=== PATIENT | male | born 2000 | race Caucasian/White ===

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

== ENCOUNTER 2019-05-31 17:58 | Emergency (ER) | payer OTHER ==
[~2019-05-31] VITALS: Ht 177.8 cm; Wt 81.8 kg
[~2019-05-31 17:58] MED LIST changes: +COLACE 100100 MG/CAP PO; +IBU600 MG PO; +NORCO 325 MG-51 TAB PO; +TYLENOL 325MG325 MG PO
[2019-05-31 18:03] VITALS: BP 134/61
[2019-05-31 20:39] VITALS: PULSE 108; TEMP 102.5
[2019-06-01 02:21] LABS: ALBUMIN 4.5 gm/dL (3.5-5.0); BASO % 0.1 % (0.0-2.0); BILIRUBIN,TOTAL 0.5 mg/dL (0.0-1.0); CALCIUM 9.1 mg/dL (8.4-10.2); CREATININE, serum 0.88 (0.66-1.25); GRAN # 5.8 (1.4-6.5); GRAN % 87.4 % (42.2-75.2); HEMATOCRIT 38.1 % (36.0-47.0); HEMOGLOBIN 13.2 g/dl (12.5-16.1); LYMPH # 0.4 (1.2-3.4); LYMPH % 5.2 % (20.0-51.0); MEAN CELL VOLUME 87 fl (80.0-95.0); MEAN CORPUSCULAR HEMOGLOBIN 30 pg (26.0-32.0); MEAN CORPUSCULAR HGB CONC 35 g/dl (33.0-37.0); MEAN PLATELET VOLUME 8.3 fl (7.4-10.4); MONO # 0.5 (0.1-0.6); MONO % 6.9 % (1.7-9.3); PLATELET COUNT 202 K/mm3 (130-400); POTASSIUM 3.9 mmol/L (3.4-5.0); RED BLOOD COUNT 4.36 M/mm3 (4.20-5.60); REDCELL DISTRIBUTION WIDTH-CV 12.4 % (11.5-14.5); TOTAL PROTEIN 7.7 gm/dL (6.4-8.2)
[2019-06-01 02:21] LABS: COLLECTION METHOD CLEAN CATCH
[2019-06-01 02:23] LABS: MUCOUS Present /lpf; PH 8 (5-8); SQUAMOUS EPITHELIAL 0-2 /hpf; URINE APPEARANCE Hazy; URINE BACTERIA None Seen /hpf; URINE BILIRUBIN Negative (NEGATIVE); URINE BLOOD Negative (NEGATIVE); URINE COLOR Yellow; URINE GLUCOSE Negative (NEGATIVE); URINE KETONE 1+ (NEGATIVE); URINE LEUKOCYTE ESTERASE Negative (NEGATIVE); URINE NITRATE Negative (NEGATIVE); URINE PROTEIN(semi-quant) Negative (NEGATIVE); URINE RBC 0-2 /hpf; URINE UROBILINOGEN >=4.0 mg/dL (NEGATIVE)
== END 2019-05-31 20:39 | disposition home or self-care (01) ==
LOC: COL.ER 17:58
PROVIDERS: Physician Assistant
DX: M54.6 Pain in thoracic spine (principal); B34.9 Viral infection, unspecified; F17.210 Nicotine dependence, cigarettes, uncomplicated
CPT/HCPCS: J1885

== ENCOUNTER 2021-02-26 11:47 | Emergency (ER) | payer OTHER ==
[~2021-02-26] VITALS: Ht 177.8 cm; Wt 100.0 kg
[2021-02-26 12:17] VITALS: BP 138/73; TEMP 100.5
[2021-02-26 13:45] VITALS: PULSE 83
== END 2021-02-26 13:45 | disposition home or self-care (01) ==
LOC: COL.ER 11:47
DX: U07.1 COVID-19 (principal)

== ENCOUNTER 2021-08-09 20:04 | Emergency (ER) | payer OTHER ==
[~2021-08-09] VITALS: Ht 177.8 cm; Wt 95.5 kg
[2021-08-09] MEDS ORDERED: CLEOCIN HCL300 MG PO (21:28)
[2021-08-09 22:20] VITALS: BP 126/64; PULSE 88; TEMP 98.9
== END 2021-08-09 22:26 | disposition home or self-care (01) ==
LOC: COL.ER 20:04
DX: J36 Peritonsillar abscess (principal)
CPT/HCPCS: J1100; J7030